=== PATIENT | male | born 1970 | race Caucasian/White ===

== ENCOUNTER 2019-02-07 01:55 | Inpatient (IN) | payer BC ==
[2019-02-07] MEDS ORDERED: Morphine 4 MG/ML VIAL ONE (02:18)
[2019-02-07] MEDS ORDERED: Ondansetron PF 4 MG/2 ML Vial ONE (02:19)
[2019-02-07 02:20] LABS: #Basophils 0.1 thou/uL (0.0-0.2); #Eosinphils 0.1 thou/uL (0.0-0.7); #Lymphocytes 2.5 thou/uL (1.20-3.40); #Monocytes 0.6 thou/uL (0.11-0.59); #Neutrophils 4.2 thou/uL (1.40-6.50); %Basophils 0.9 % (0.0-1.0); %Eosinophils 1.5 % (0.0-10.0); %Lymphocytes 33.6 % (21.0-51.0); Mean Corpuscular Hemoglobin 29.7 pg (27.0-31.0); Mean Corpuscular Volume 82.6 fL (78.0-98.0); Mean Platelet Volume 9.1 fL (7.4-10.4); Platelet Count 142 thou/uL (130-400); Red Blood Cell (RBC) Count 5.71 mill/uL (4.70-6.10); White Blood Cell (WBC) Count 7.4 thou/uL (4.8-10.8)
[2019-02-07 02:46] LABS: ALT (SGPT) 30 U/L (8-55); AST (SGOT) 18 U/L (5-34); Albumin 4.3 g/dL (3.5-5.0); Alkaline Phosphatase 90 U/L (40-150); Anion Gap 17 mmol/L (10-20); BUN (Urea Nitrogen) 19 mg/dL (8.9-20.6); Bilirubin, Total 0.3 mg/dL (0.2-1.2); Calc. Creatinine Clearance 0 mL/min (70-130); Calcium 9.5 mg/dL (7.8-10.44); Carbon Dioxide 16 mmol/L (22-29); Chloride 105 mmol/L (98-107); Estimated GFR-MDRD 65; Globulin 3.2 g/dL (2.4-3.5); Glucose 278 mg/dL (70-105); Lipase 42 U/L (8-78); Potassium 4.2 mmol/L (3.5-5.1); Protein, Total 7.5 g/dL (6.0-8.3); Sodium 134 mmol/L (136-145)
[2019-02-07] MEDS ORDERED: Ketorolac Tromethamine 30 MG/ML VIAL ONE (03:51)
[2019-02-07] MEDS ORDERED: HumaLOG 300 UNITS/3 ML VIAL SC PRN ×2 (04:05)
[2019-02-07] MEDS ORDERED: Dextrose 50% Abboject 50 ML SYRINGE SLOW IVP PRN ×2 (04:05→20:11)
[2019-02-07] MEDS ORDERED: Dextrose 5% in Water 1,000 ML IV PRN ×2 (04:05→20:11)
[2019-02-07] MEDS ORDERED: Ondansetron ODT 4 MG TAB PO PRN (04:16)
[2019-02-07] MEDS ORDERED: Ondansetron PF 4 MG/2 ML Vial IVP PRN ×2 (04:16→19:59)
[2019-02-07 04:18] LABS: Bilirubin Negative (Negative); Blood, Urine Negative (Negative); Clarity Clear (Clear); Glucose, Urine (Dipstick) Greater than 1000 mg/dL (Negative); Leukocyte Negative Leu/uL (Negative); Nitrite Negative (Negative); Protein, Urine (Dipstick) Negative (Neg-Trace); Urobilinogen Normal mg/dL (Less than 2)
[2019-02-07] MEDS: Sodium Chloride 0.9% 1,000 ML IV SCH ×2 (04:58→23:48)
[2019-02-07] MEDS ORDERED: Morphine 2 MG/ML SYRINGE SLOW IVP PRN (05:27)
[2019-02-07 05:51] LABS: Cardiac Risk 7.8 (Less than 4.5); Cholesterol 225 mg/dl (< 200 Desired); HDL Cholesterol 29 mg/dL (>60 Neg Risk); Triglycerides 696 mg/dL (Less than 150)
[2019-02-07 05:59] LABS: Amphetamine Not Detected (NotDetected); Barbiturates Screen Not Detected (NotDetected); Benzodiazepine Screen Not Detected (NotDetected); Cocaine Metabolite Screen Not Detected (NotDetected); Medtox Control Line Valid? VALID (VALID); Medtox Reader # READER 4; Methadone Not Detected (NotDetected); Methamphetamine Not Detected (NotDetected); Opiate Screen Detected (NotDetected); Oxycodone Screen Not Detected (NotDetected); Phencyclidine (PCP) Not Detected (NotDetected); THC/Cannabinoid Screen Not Detected (NotDetected); Tricyclic Screen Not Detected (NotDetected)
[2019-02-07 06:00] LABS: Troponin I 0.056 ng/mL (< 0.028)
--- NOTE | 2019-02-07 07:36 | HP ---
PRIMARY CARE PHYSICIAN: None. CHIEF COMPLAINT: Chest pain. HISTORY OF PRESENT ILLNESS: Mr. Sellers is a 48-year-old gentleman with a history of hypertension, diabetes, and high cholesterol, who presents after experiencing chest pain around midnight. The patient states he got out of bed, went to the bathroom and after lying back in bed, began to experience significant pain which he rates 8/10. He states it was in the center of his chest, described as a pressure which radiated up into the upper chest from right to left. He reports noting some mild discomfort radiating down his left arm and discomfort into the right shoulder. He states he became diaphoretic and vomited once. Denies any hematemesis. The patient states the pain was 8/10 in severity and he took his mother's nitroglycerin, which did not help to ease his pain. He denies having any associated shortness of breath. He called an ambulance because he is afraid given the fact that he has never experienced any pain like this before. En route to the hospital, EMS gave another dose of nitroglycerin which the patient states that helped to ease his discomfort to 3/10 in severity. The pain has remained constant at 3/10 since arriving to the emergency department. He has been given Toradol, as well as morphine and Zofran. An EKG was done in the emergency department, which showed normal sinus rhythm with a heart rate of 63. This was at 2:00 a.m. At 3:00 a.m., repeat EKG showed sinus bradycardia with a heart rate of 56. No ST changes or T-wave abnormalities. He has undergone a chest x-ray, which according to the emergency department physician did not demonstrate any acute changes. Final report is still pending. Given the fact that the patient has multiple comorbidities and initial family history of heart disease, he has been referred for continued observation and further investigations. REVIEW OF SYSTEMS: The patient states he recalls feeling slightly nauseated and with persisting heartburn all of yesterday. Denies having any vomiting yesterday. Also denies having any chest pain or shortness of breath history. Reports feeling fairly well in recent days without any fevers, chills, or sweats. No cough or hemoptysis. No abdominal pain or cramping. No changes with his bowels. He has been afebrile. All other review of systems negative. ALLERGIES: NO KNOWN DRUG ALLERGIES. CURRENT MEDICATIONS: 1. Fenofibrate. 2. Sildenafil. 3. Farxiga. 4. Lisinopril. PAST MEDICAL HISTORY: 1. Hypertension. 2. Diabetes mellitus. 3. Obesity. PAST SURGICAL HISTORY: Nasal surgery. SOCIAL HISTORY: The patient denies any alcohol consumption or illicit drug use. He does smoke tobacco, recently cut down to half a pack a day. PHYSICAL EXAMINATION: GENERAL: The patient appears well developed, well nourished, is in no acute distress. VITAL SIGNS: Temperature 98.3, pulse 59, blood pressure 118/80, respirations 16 , O2 saturation 97% on room air. HEENT: Normocephalic and atraumatic. Pupils are equal, round, and reactive to light. Sclerae without icterus. Oropharynx is clear. NECK: Supple. LUNGS: Clear to auscultation bilaterally without any wheezes, rales, or rhonchi. CARDIAC: Regular rate and rhythm. No chest wall tenderness. No murmurs, rubs , or gallops. ABDOMEN: Soft, nontender, and nondistended. Normoactive bowel sounds present. EXTREMITIES: No lower leg swelling or edema. NEUROLOGIC: Alert and oriented x3. SKIN: Without rash or jaundice. LABORATORY DATA: Full blood count unremarkable. LFTs normal including normal lipase. Sodium 134. GFR 65, creatinine 1.1, BUN 19. Initial troponin negative. IMAGING DATA: Chest x-ray done, final report pending. IMPRESSION AND PLAN: Mr. Sellers is a 48-year-old gentleman, who has been referred for management of the following. 1. Chest pain. The patient with comorbidities and a strong family history of coronary artery disease. He has been referred for acute coronary syndrome rule out. We will continue to trend troponins. He has just been given Toradol in the ER. We will give GI cocktail as well. He will need continuous cardiac monitoring. We will schedule a cardiac stress test. If EF reduced on stress test, he may benefit from undergoing an echocardiogram as well. I have added BNP to his labs, as well as magnesium and TSH. If EF on stress test is unremarkable, perhaps an outpatient echocardiogram would then be indicated. Day team to decide. 2. Hypertension. Resume home medications once verified. Monitor blood pressure. 3. Diabetes. Initiate insulin sliding scale. Monitor glucose and resume home medications once verified. 4. Gastrointestinal prophylaxis. Famotidine. 5. Deep venous thrombosis prophylaxis. Mechanical SCDs. The patient is ambulatory. 6. Code status full. His surrogate decision maker is his , Sariah Sellers. The patient's case was discussed with Dr. Rhodes, who agrees with plan of care as described above. Job ID: [id number] MTDD
--- NOTE | 2019-02-07 08:08 | RAD ---
AP CHEST: HISTORY: Chest pain. FINDINGS: Lungs are clear. Heart and mediastinum appear normal. Vasculature normal. IMPRESSION: No acute finding. POS: [facility]
--- NOTE | 2019-02-07 08:14 | CT ---
PRELIMINARY REPORT/[facility]/EMERGENCY AFTER HOURS PROCEDURE: PROCEDURE INFORMATION: Exam: CT Angiography Chest With Contrast Exam date and time: 02/07/2019 4:31 AM Clinical history: 48 years old, male; Patient HX: 48 yo male with a pmh of HTN, dm2, and tobacco abus e who presents to the ED with a cc of chest pain. He reports the chest pain started at 0045 that star amelia when he was walking to the bathroom. He denies any pain like this before. He states that the pain is pressure at the center of his chest with radiation across his chest and into his arm TECHNIQUE: Imaging protocol: Computed tomographic angiography of the chest with intravenous contrast. COMPARISON: No relevant prior studies available. FINDINGS: Pulmonary arteries: Limited evaluation due to poor contrast opacification of the pulmonary arteries, however no obvious central pulmonary embolism. Aorta: No acute findings. No aortic aneurysm or dissection. Lungs: No consolidation. No masses. Pleural space: No pneumothorax. Bilateral small pleural effusions. Heart: No cardiomegaly. Coronary calcifications. No significant pericardial effusion. Lymph nodes: No significant adenopathy. Bones/joints: No acute fracture. Soft tissues: No acute findings. IMPRESSION: No aortic aneurysm or dissection. Coronary calcifications. Bilateral small pleural effusions. PROCEDURE INFORMATION: Exam: CT Angiography Abdomen With Contrast Exam date and time: 02/07/2019 4:31 AM Clinical history: 48 years old, male; Patient HX: 48 yo male with a pmh of HTN, dm2, and tobacco abus e who presents to the ED with a cc of chest pain. He reports the chest pain started at 0045 that star amelia when he was walking to the bathroom. He denies any pain like this before. He states that the pain is pressure at the center of his chest with radiation across his chest and into his arm TECHNIQUE: Imaging protocol: Computed tomographic angiography images of the abdomen with intravenous contrast ma terial. COMPARISON: No relevant prior studies available. FINDINGS: VASCULATURE: Aorta: No acute findings. No aortic aneurysm. No aortic dissection. Celiac trunk and mesenteric arteries: No acute findings. No occlusion or significant stenosis. Renal arteries: No acute findings. No occlusion or significant stenosis. ABDOMEN: Liver: No acute findings. Fatty liver. Gallbladder and bile ducts: No calcified stones. No ductal dilation. Pancreas: No acute findings. No ductal dilation. Spleen: No acute findings. No splenomegaly. Adrenals: No acute findings. No mass. Kidneys and ureters: No acute findings. No hydronephrosis. Stomach and bowel: No acute findings. No obstruction. Normal appendix. Intraperitoneal space: No acute findings. No free air. No significant fluid collection. Bones/joints: No acute fracture. No dislocation. Soft tissues: No acute findings. Lymph nodes: No enlarged lymph nodes. IMPRESSION: No acute findings. Thank you for allowing us to participate in the care of your patient. Dictated and Authenticated by: Jose Maldonado MD 02/07/2019 5:18 AM Central Time ([place] & [place]) FINAL REPORT CTA CHEST AND ABDOMEN WITH CONTRAST: Date: 02/07/19 Thoracic and abdominal aorta shows no evidence of aneurysm or dissection. No significant atherosclero tic disease. Lung travis are clear of infiltrate. Liver, spleen, pancreas, and kidneys are unremarkable. Bowel loo ps unremarkable. I am in agreement with the preliminary report issued by [facility]. POS: [facility]
[2019-02-07] MEDS ORDERED: Famotidine/PF 20 mg/2ml Vial SLOW IVP SCH (09:00)
[2019-02-07 09:03] LABS: Troponin I 0.346 ng/mL (< 0.028)
[2019-02-07] MEDS ORDERED: Iopamidol 370 76% 100 ML VIAL ONE (09:51)
[2019-02-07] MEDS ORDERED: ISOVUE-370 76%-LOCM 1 ML ONE (11:57)
[2019-02-07] MEDS ORDERED: Lidocaine 1% (PF) 30 ML VIAL ONE (11:59)
[2019-02-07] MEDS ORDERED: Communication Order-Pharmacy FS SCH (12:15)
[2019-02-07] MEDS ORDERED: Verapamil 5 MG/2 ML VIAL ONE (12:24)
[2019-02-07] MEDS ORDERED: Heparin 10,000 UNITS/1 ML VIAL ONE ×2 (12:24→16:08)
[2019-02-07] MEDS ORDERED: Nitroglycerin 100MG/250ML BOT 250 ML ONE (12:24)
[2019-02-07] MEDS ORDERED: Midazolam HCl 2 mg/2 ml Vial ONE ×2 (12:50→14:32)
--- NOTE | 2019-02-07 13:12 | CON ---
DATE OF CONSULTATION: 02/07/2019 INDICATION FOR CONSULTATION: A 48-year-old gentleman with chest pain and multiple risk factors of coronary artery disease. HISTORY OF PRESENT ILLNESS: This very pleasant 48-year-old gentleman, who has a history of diabetes, hypertension, dyslipidemia with high triglycerides and high cholesterolemia. Also, he has a history of tobacco abuse. He has been smoking for at least 25 to 30 years. He also has family history of coronary artery disease. He works in the [employer]. Last night, he got up to go to the bathroom and noted the chest discomfort. His gave him one of her nitroglycerins, which was old, did not have any relief. 911 was called. He did have a nitroglycerin in the ambulance and this did improve his chest pain. The pain came back. He was given more nitroglycerin and the pain had decreased again. He said this never completely resolved. His EKG did not show any acute changes, but he did have some peaked T-waves in the anterior leads, which could be indicative of ischemia. Otherwise , cardiac enzymes also were slightly abnormal. I have continued to increase slightly. His last troponin I was 0.3. He still continues to have some discomfort, and I will advise him to undergo a cardiac catheterization. PAST MEDICAL HISTORY: Significant for the above noted risk factors such as hypercholesterolemia, diabetes, and hypertension. He also has some obesity. He has had nasal surgery. SOCIAL HISTORY: He is . He has children, who are alive and well. He works in the [employer]. He has no significant alcohol use, but he does continue to smoke. He says he is down to like a half a pack a day, but previously smoked more. REVIEW OF SYSTEMS: His 12-point review of systems is unremarkable, except as noted in the history of present illness. MEDICATIONS: Included, 1. Fenofibrate 145 mg a day. 2. Sildenafil. 3. Lisinopril 40 mg a day. He also was taking a medication as Fluarix Quad, I am unsure if that is an injection. In the emergency room, he was given morphine, Zofran, as well as ketorolac. He had been given nitroglycerin in the ambulance. ALLERGIES: NONE. FAMILY HISTORY: Positive for coronary artery disease. PHYSICAL EXAMINATION: GENERAL: Reveals a well-developed, well-nourished gentleman, who is in no acute distress, but still complaining of chest discomfort. VITAL SIGNS: His vital signs appear to be stable. His blood pressure is 146/87 , heart rate is in the 60s and shows a sinus rhythm, respiratory rate is 14. He is afebrile. HEENT: Shows the head to be normocephalic and atraumatic. Oral mucosa is pink and moist. NECK: Carotid pulses are present. There are no bruits. There is no JVD. The thyroid is not enlarged. CHEST: Clear to auscultation. There are no rales, rhonchi, or wheezing. CARDIOVASCULAR: Reveals a regular rate and rhythm. There is a normal S1, S2. I do not hear an S3 nor an S4. There are no significant murmurs, heaves, thrills, bruits, or rubs. ABDOMEN: Soft, nontender. Positive bowel sounds are present. No organomegaly or masses are palpable. EXTREMITIES: Showed no clubbing, cyanosis, or edema. He does have some excoriation areas from previous mosquito bites. Pulses are positive. No abnormalities are noted. NEUROLOGIC: He appears to be fully intact. He appears to have normal strength and tone. SKIN: Warm and dry. LABORATORY DATA: Shows a WBC of 7.4, hemoglobin of 17, and platelet count of 142,000. His troponin I is continued to rise. His last one was 1.56, earlier this morning at 8 o'clock was 0.34, and when he arrived in the emergency room, it was less than 0.01. His BNP was 29. His triglycerides were 696. His LDL level is too numerous to count due to the high triglyceridemia. His HDL level was low at 29. Sodium was 134, potassium of 4.2. His BUN was 19, creatinine of 1.2, and blood sugar was 278. Since being in the hospital, he has been placed on Pepcid, he has been on p.r.n. morphine. I do not see that he has been given any anticoagulation yet such as Lovenox or heparin. Otherwise, he is on p.r.n. medications. We will cancel the stress test, and we will proceed with cardiac catheterization. I have explained to him the procedure, the risks to include bleeding, infection, possibility of myocardial infarction, CVA, renal insufficiency, allergic contrast reaction, and the possibility of . IMPRESSION: 1. [id number] elevation myocardial infarction in a patient with multiple risk factors for coronary artery disease. He will undergo cardiac catheterization. 2. Diabetes. This is actually under poor control at this time. The blood sugar is elevated. This will need to be addressed by the primary care service. 3. Dyslipidemia with significantly elevated triglyceride levels. We will need to increase his medications or try different medications in order to lower the triglycerides. We were unable to even interpret what the LDL level is. 4. Hypertension. This is under reasonable control, but could be better controlled also at this time. 5. Tobacco abuse. He was encouraged to absolutely stop smoking. Further recommendations on the patient will depend on the results of the cardiac catheterization, which will be planned for within the next hour. Job ID: [id number] MTDD
[2019-02-07] MEDS ORDERED: Esmolol 100 MG/10 ML VIAL ONE (13:27)
[2019-02-07] MEDS ORDERED: Aminocaproic Acid 5 GM/20 ML VIAL ONE (13:27)
[2019-02-07] MEDS ORDERED: Norepinephrine 4 MG/4 ML VIAL ONE (13:27)
[2019-02-07] MEDS ORDERED: Sodium Bicarb 50 MEQ/50 ML VIAL ONE (13:27)
[2019-02-07] MEDS ORDERED: Nitroglycerin 50 MG/250 ML BOT ONE (13:27)
[2019-02-07] MEDS ORDERED: Vecuronium 10 MG VIAL ONE ×2 (13:27→13:52)
[2019-02-07] MEDS ORDERED: Papaverine 60 MG/2 ML VIAL ONE (13:27)
[2019-02-07] MEDS ORDERED: Heparin 30,000 units/30 ml VIAL ONE (13:27)
[2019-02-07] MEDS ORDERED: Protamine Sulfate 250 MG/25 ML VIAL ONE (13:27)
[2019-02-07] MEDS ORDERED: Cardioplegic Soln 1,000 ML BAG ONE (13:27)
[2019-02-07] MEDS ORDERED: Thrombin 5000 UNITS/5 ML VIAL ONE (13:27)
[2019-02-07] MEDS ORDERED: Heparin 5,000 UNITS/ML VIAL ONE (13:27)
[2019-02-07] MEDS ORDERED: PROPOFOL 200 MG/20 ML VIAL ONE (13:27)
[2019-02-07] MEDS ORDERED: Rocuronium Bromide 10 MG/ML (10ML VIAL) ONE (13:27)
[2019-02-07] MEDS ORDERED: Calcium Chloride 1 GM/10 ML Abboject SYRINGE ONE (13:27)
[2019-02-07] MEDS ORDERED: Potassium Chloride 60 MEQ/30 ML VIAL ONE (13:27)
[2019-02-07] MEDS ORDERED: PHENYLEPHRINE-NS 100 MCG/ML 10 ML SYRINGE ONE (13:27)
[2019-02-07] MEDS ORDERED: Mannitol 12.5 GM/50 ML ONE (13:27)
[2019-02-07] MEDS ORDERED: Magnesium 5 GM/10 ML VIAL ONE (13:27)
[2019-02-07] MEDS ORDERED: Lidocaine 2% PF 100 mg/5 ml Syringe ONE (13:27)
[2019-02-07] MEDS ORDERED: Albumin 5% 500 ML ONE (13:50)
[2019-02-07] MEDS ORDERED: Midazolam HCl 5 mg/5 ml Vial ONE ×2 (13:51→17:59)
[2019-02-07] MEDS ORDERED: Fentanyl 250 MCG/5 ML VIAL ONE ×2 (13:51→16:53)
[2019-02-07] MEDS ORDERED: Dexmedetomidine 200 MCG/2 ML VIAL ONE (13:52)
[2019-02-07] MEDS ORDERED: Heparin 10,000 UNITS/1 ML VIAL 30,000 UNITS in Sodium Chloride 0.9% 1,000 ML FS SCH (14:15)
[2019-02-07] MEDS ORDERED: CEFAZOLIN 2 GM in Premix Bag 1 BAG IVPB SCH (14:30)
[2019-02-07] MEDS ORDERED: Nitroglycerin 0.4 MG TAB (25 Tab Bottle) SL PRN (14:57)
[2019-02-07] MEDS ORDERED: Sodium Chloride 0.9% 200 ML IV PRN (14:57)
[2019-02-07] MEDS ORDERED: Acetaminophen/Codeine 30-300mg Tablet PO PRN ×2 (14:57)
--- NOTE | 2019-02-07 15:39 | CON ---
DATE OF CONSULTATION: 02/07/2019 REQUESTING PHYSICIAN: Dr. Lucero. CHIEF COMPLAINT: Chest pain. HISTORY OF PRESENT ILLNESS: The patient is a 48-year-old diabetic man with positive family history of premature coronary artery disease, who began having severe chest pain and pressure in his upper chest. Late last night, he had one episode of vomiting and became diaphoretic, but did not have any shortness of breath. He had no relief of his pain when he took one of his mother's nitroglycerin tablets and then called an ambulance. A second dose of nitroglycerin en route to the hospital helped with this pain, but his pain has persisted. It has waxed and waned in intensity and is certainly under much better control now, but his initial troponins though normal, soon sophie and as of about noon time, were still rising, albeit still modestly elevated. PAST MEDICAL HISTORY: Significant for insulin-dependent diabetes and hypertension. HOME MEDICATIONS: 1. Lantus insulin 10 units a day. 2. Farxiga 10 mg a day. 3. Metformin 1000 mg b.i.d. 4. Lisinopril 40 mg a day. 5. Fenofibrate 145 mg a day and p.r.n. 6. Sildenafil 100 mg a day. 7. He has received Toradol, morphine, and Zofran in the emergency room. He has received no platelet inhibitors. ALLERGIES: HE DENIES ANY MEDICAL ALLERGIES. SOCIAL HISTORY: He smokes. FAMILY HISTORY: Positive for his father having had bypass surgery in his 40s and his maternal grandfather and uncles having had coronary artery disease. REVIEW OF SYSTEMS: Negative for any eye, speech, facial, or extremity symptoms consistent with TIAs. It is negative for any claudication or any shortness of breath, any orthopnea. PHYSICAL EXAMINATION: GENERAL: He is a stocky man, in no distress. VITAL SIGNS: He is 5 feet 11 inches, weighs 250-1/4 pounds. HR 66 BP 146/87 T 98.1 HEENT: No xanthelasma. NECK: No JVD. No carotid bruits. CHEST: Clear to auscultation. HEART: He has regular rate and rhythm. ABDOMEN: Soft and nontender. EXTREMITIES: He has palpable radial pulses with normal Jeremy's testing bilaterally. He has palpable dorsalis pedis pulses bilaterally. There is no clubbing, cyanosis, or edema. No obvious varicosities. NEUROLOGIC: Grossly nonfocal. DIAGNOSTIC DATA: His chest x-ray perhaps shows slightly prominent pulmonary vascular markings, otherwise is normal. LABORATORY DATA: His white count 7.4, hemoglobin 17.0, hematocrit 47.2, platelets 142,000. Sodium was 134, otherwise his electrolytes were normal. BUN 19, creatinine 1.21 with an estimated GFR of 65. Glucose was 278, calcium 9.5. LFTs were normal. Albumin 4.3. His initial troponin was undetectable, but his followup troponin at about 5:30 this morning was 0.056, at 8:30 was 0.346, and at 11:30 hours, 1.560. His BNP was 29.3, triglycerides were 696 and total cholesterol 225, HDL was 29, LDL cannot be calculated causing interference. TSH was 2.0140. His cardiac catheterization shows right-dominant system with about a 70% or 80% distal left main lesion. The LAD abruptly occludes at the first major septal tour conductor and a relatively small diagonal. There is some collateral filling of some septal perforators and probably diagonal and then in the right-sided injections, hang up of some dye, I think probably represents the apical segment of the LAD can be seen. There are two obtuse marginals to the circumflex system. There is no obstruction to flow to the first OM beyond the left main lesion. There is significant lesion in the circumflex proper __that leads to a rather small posterolateral OM. The right coronary proper has diffuse disease with what appears to be grossly intact posterior descending and posterolateral branches with perhaps some minimal obstruction in the ostium of one of the large posterolateral branches. LVEF is around 40% with anterior hypokinesis and an LVEDP of 20. IMPRESSION AND RECOMMENDATIONS: Left main disease with waxing and waning, but ongoing pattern of post infarction angina. We will plan on urgent coronary revascularization. Job ID: [id number] [facility]ITAL[facility]
[2019-02-07] MEDS ORDERED: Insulin Regular 300 UNITS/3 ML VIAL ONE (16:39)
[2019-02-07] MEDS ORDERED: CEFAZOLIN 1 GM VIAL ONE (17:02)
[2019-02-07] MEDS ORDERED: Fentanyl 100 MCG/2 ML VIAL ONE (19:48)
[2019-02-07] MEDS: Fentanyl 100 MCG/2 ML VIAL SLOW IVP PRN ×3 (19:50→23:51)
[2019-02-07] MEDS ORDERED: Promethazine HCl 25 MG/ML VIAL IM PRN (19:59)
[2019-02-07] MEDS ORDERED: Guaifenesin DM 100-10/5 ML UDCUP PO PRN (19:59)
[2019-02-07] MEDS ORDERED: Norepinephrine 8 MG/0.9% NS 250 ML IVPB PRN (19:59)
[2019-02-07] MEDS ORDERED: Fentanyl 100 MCG/2 ML VIAL SLOW IVP PRN (19:59)
[2019-02-07] MEDS ORDERED: hydrALAZINE 20 MG/ML VIAL SLOW IVP PRN (19:59)
[2019-02-07] MEDS ORDERED: niCARdipine 25 MG in Sodium Chloride 0.9% 250 ML 250 ML IVPB PRN (19:59)
[2019-02-07] MEDS ORDERED: HYDROcodone/Acetaminophen 5/325 mg Tablet PO PRN (19:59)
[2019-02-07] MEDS ORDERED: Mag-Al 1200 mg/1200 mg/30 ML UDCUP PO PRN (19:59)
[2019-02-07] MEDS ORDERED: Acetaminophen 325 MG TAB PO PRN (19:59)
[2019-02-07] MEDS ORDERED: Hetastarch 6% 500 ML 500 ML IVPB PRN (19:59)
[2019-02-07] MEDS ORDERED: Post-Op Insulin Drip Protocol IVPB ONE (19:59)
[2019-02-07] MEDS ORDERED: Sodium Chloride 0.9% 1,000 ML IV SCH (19:59)
[2019-02-07] MEDS ORDERED: Bisacodyl 5 MG TAB PO PRN (19:59)
[2019-02-07] MEDS ORDERED: Nitroglycerin 50 MG/250 ML BOT 250 ML IVPB PRN (19:59)
[2019-02-07] MEDS ORDERED: Bisacodyl 10 MG SUPP PR PRN (19:59)
[2019-02-07 20:10] LABS: Actual Bicarbonate (HCO3a) 16.4 mEq/L (22-28); CO2 Tension 27.9 mmHg (35.0-45.0); Calcium, Ionized 1.13 mmol/L (1.12-1.30); Carboxyhemoglobin (COHb) 1.4 gm% (0.0-3.0); Hemoglobin (Hb) 14.7 g/dL (14.0-18.0); O2 Tension (PaO2) 96.7 mmHg (80.0-100.0); Potassium - ABG Lab 4.23 mmol/L (3.70-5.30); Puncture Site ALINE; pH, Arterial 7.39 (7.35-7.45)
[2019-02-07 20:11] LABS: ALV-art Gradient 296.225 (0-20)
[2019-02-07 20:11] LABS: #Eosinphils 0.1 thou/uL (0.0-0.7); #Lymphocytes 2.1 thou/uL (1.20-3.40); #Monocytes 1.4 thou/uL (0.11-0.59); #Neutrophils 13.6 thou/uL (1.40-6.50); %Basophils 0.1 % (0.0-1.0); %Eosinophils 0.5 % (0.0-10.0); %Lymphocytes 11.9 % (21.0-51.0); %Monocytes 8.2 % (0.0-10.0); %Neutrophils 79.2 % (42.0-75.0); Hemoglobin 14.4 g/dL (14.0-18.0); Mean Corpuscular HGB CONC 35.1 g/dL (32.0-36.0); Mean Corpuscular Hemoglobin 29.8 pg (27.0-31.0); Mean Corpuscular Volume 85.1 fL (78.0-98.0); Mean Platelet Volume 9.3 fL (7.4-10.4); Platelet Count 118 thou/uL (130-400); RBC Distribution Width 13.1 % (11.5-14.5); Red Blood Cell (RBC) Count 4.84 mill/uL (4.70-6.10); White Blood Cell (WBC) Count 17.2 thou/uL (4.8-10.8)
[2019-02-07] MEDS ORDERED: Insulin Regular 300 UNITS/3 ML VIAL SC PRN (20:11)
[2019-02-07] MEDS ORDERED: HUMULIN R 100 UNITS in Sodium Chloride 0.9% 100 ML IVPB SCH (20:11)
--- NOTE | 2019-02-07 20:11 | RAD ---
Frontal radiograph chest: 02/07/2019 COMPARISON: 02/07/2019 History: Evaluate chest following open heart surgery FINDINGS: There is an endotracheal tube terminating at the level of the clavicular heads. Right vascular catheter terminates at the level of the proximal right atrium. New midline sternotomy wires are present. Left-sided chest tube and mediastinal drainage tubes noted. No lobar consolidation. Hazy increased density in the left base suggesting left basilar volume loss or small v olume pleural fluid. IMPRESSION: Postoperative changes as detailed above.
[2019-02-07] MEDS ORDERED: Sodium Bicarb 50 MEQ/50 ML VIAL IVP SCH (20:15)
[2019-02-07] MEDS ORDERED: Aspirin 300 MG Suppository PR SCH (20:15)
[2019-02-07] MEDS ORDERED: DOBUTamine 500 mg/250 ml 500 MG in Premix Bag 1 BAG IVPB SCH (20:15)
[2019-02-07 20:16] LABS: INR-International Normal Ratio 1.4; PTT 25.1 SEC (22.9-36.1); Prothrombin Time 16.9 SEC (12.0-14.7)
[2019-02-07] MEDS: Morphine 2 MG/ML SYRINGE SLOW IVP PRN ×2 (20:31→20:53)
[2019-02-07 20:35] LABS: Anion Gap 8 mmol/L (10-20); BUN (Urea Nitrogen) 15 mg/dL (8.9-20.6); Calc. Creatinine Clearance 140 mL/min (70-130); Calcium 7.4 mg/dL (7.8-10.44); Carbon Dioxide 23 mmol/L (22-29); Chloride 112 mmol/L (98-107); Estimated GFR-MDRD 75; Glucose 130 mg/dL (70-105); Sodium 139 mmol/L (136-145)
[2019-02-07 21:00] LABS: Actual Bicarbonate (HCO3a) 23.8 mEq/L (22-28); Base Excess (BEa) -1.7 mEq/L (-2.0 to +3.0); CO2 Tension 43.1 mmHg (35.0-45.0); Calcium, Ionized 1.07 mmol/L (1.12-1.30); Carboxyhemoglobin (COHb) 1.3 gm% (0.0-3.0); Hemoglobin (Hb) 15.6 g/dL (14.0-18.0); O2 Tension (PaO2) 76.2 mmHg (80.0-100.0); Potassium - ABG Lab 4.32 mmol/L (3.70-5.30); pH, Arterial 7.36 (7.35-7.45)
[2019-02-07 21:07] LABS: ALV-art Gradient 155.125 (0-20); Puncture Site ALINE
[2019-02-07] MEDS: HYDROcodone/Acetaminophen 5/325 mg Tablet PO PRN (22:14)
[2019-02-07] MEDS: Famotidine/PF 20 mg/2ml Vial SLOW IVP SCH (22:15)
[2019-02-07] MEDS: Atorvastatin Calcium 40 MG TAB PO SCH (22:15)
[2019-02-07] MEDS: Docusate 100 MG CAP PO SCH (22:18)
[2019-02-07 22:52] VITALS: BMI 36.1
[2019-02-08 01:26] LABS: Hemoglobin 14.9 g/dL (14.0-18.0)
[2019-02-08 01:39] LABS: Potassium 3.7 mmol/L (3.5-5.1)
[2019-02-08] MEDS: HYDROcodone/Acetaminophen 5/325 mg Tablet PO PRN ×4 (02:00→16:13)
[2019-02-08] MEDS: Fentanyl 100 MCG/2 ML VIAL SLOW IVP PRN (02:01)
[2019-02-08] MEDS: Potassium Chloride 20 MEQ/100 ML PREMIX BAG IVPB PRN ×2 (02:02→06:09)
--- NOTE | 2019-02-08 02:03 | OP ---
DATE OF PROCEDURE: 02/07/2019 PROCEDURES PERFORMED: Emergent coronary artery bypass grafting x3 with left internal mammary artery to the distal LAD, left radial artery from aorta to the first obtuse marginal, and reverse greater saphenous vein graft from the aorta to the PDA. PREOPERATIVE DIAGNOSIS: Left main coronary artery disease with ongoing angina, status post myocardial infarction. POSTOPERATIVE DIAGNOSIS: Left main coronary artery disease with ongoing angina, status post myocardial infarction. ASSISTANTS: 1. Jesus Alberto Chatman MD. 2. Micah Oneill MD. ANESTHESIA: General endotracheal anesthesia. INDICATIONS: The patient is a 48-year-old diabetic smoker with a strongly positive family history of premature coronary disease. Last night, he had severe chest pain and ruled in for myocardial infarction. While his initial chest pain greatly improved, it followed a waxing and waning course and has never completely resolved. Urgent cardiac catheterization demonstrated high-grade distal left main lesion with extremely poor visualization of an occluded LAD, as well as significant right coronary disease. He had mildly decreased LV function with anterior hypokinesis. He is now taken to the operating room in urgent fashion for revascularization. FINDINGS: Pump time 80 minutes. Cross-clamp time 40 minutes. Good quality ANIVAL , radial artery, and saphenous vein. The LAD was about 2 to 2.5 mm vessel. The first obtuse marginal was about 2 mm. The second obtuse marginal were accessible on the epicardial surface, was about 1 mm and was not grafted. The PDA was about 2 to 2.5 mm vessel. The anterior apical portion of the left ventricle was poorly contractile even post revascularization. The pericardium was closed. NARRATIVE REPORT: After informed consent was obtained, the patient was taken to the operating room, placed in supine position on the operating table. After the induction of general anesthesia, a vascular exam of the patient's nondominant left hand was repeated with pulse ox monitor on his left index finger. Both the radial and ulnar artery were compressed, resulting in loss of the pulse ox waveform, that waveform returned with release of the ulnar artery although the radial artery remained compressed. Ultrasonographically, his left greater saphenous vein was then mapped and marked. His right upper chest was prepped and draped in sterile fashion and he was placed in Trendelenburg. A triple-lumen central line kit was used to place right subclavian central line by the Seldinger technique. All 3 ports easily aspirated and flushed, and the line was secured with suture. The patient's torso, groins, left upper extremity and bilateral lower extremities were prepped and draped in sterile fashion. An purchasing assistant harvested radial artery as a pedicle with attached _vena communicantes from the left forearm, controlling side branches with use of hemoclips and electrocautery. That wound was closed in layers of subcutaneous and subcuticular Vicryl and saphenous vein was harvested from the mid to distal left thigh using a skin bridge technique. It was prepared for use as a graft and the harvest sites were closed in a similar fashion. Meanwhile, a median sternotomy was performed and the left internal mammary artery was harvested as a skeletonized in-situ graft from the level of lateral xiphoid to the level of the subclavian vein through an extrapleural exposure. The patient was heparinized. The mammary was ligated and divided distally. It was instilled intraluminally with papaverine solution and the mammary bed was inspected for hemostasis. Retractor was replaced with a Stoddard retractor. The medial reflections of the pleura were mobilized. The pericardium was opened and marsupialized. The aorta was palpated and was soft. A double concentric pursestring of 2-0 Ethibond was placed in the ascending aorta within the pericardial reflection and a single pursestring was placed in the right atrial appendage. Aortic and venous cannulae were inserted and secured by their pursestrings. The plane between the aorta and the pulmonary artery was developed. Cardiopulmonary bypass was instituted and the patient was systemically cooled. The heart was examined and the vessels to be bypassed were identified. A longitudinal slit was made in the pericardium anterior to the left phrenic nerve through which the mammary could be passed. The left pleura was entered as it was being mobilized off the pericardium. An aortic cross-clamp was applied and cardioplegia was administered through an aortic root needle. When arrest have been achieved, attention was turned to the distal right coronary system. The proximal PDA was exposed and opened, where it was a large good quality vessel. Saphenous vein was reversed and anastomosed there end-to-side with running 6-0 Prolene suture and the anastomosis was tested by flushing cold cardioplegia down the graft. The first obtuse marginal was then opened. The radial artery was spatulated and anastomosed to the OM with running 7-0 Prolene suture and tested by flushing it with cold cardioplegia. The LAD was then opened distally and the mammary was anastomosed to it with running 7-0 Prolene and tacked to the epicardium. The aortic cross- clamp was replaced with a partial occluding clamp and aortotomy was made in the ascending aorta with a scalpel and punch, incorporating the root needle site. The PDA graft was brought along the right side of the heart and anastomosed to that aortotomy end-to-side with running 6-0 Prolene suture. An 11 blade scalpel was used to create a venotomy in the lou[place] of that proximal anastomosis. The radial artery graft was then spatulated and anastomosed there end-to-side with running 7-0 Prolene. It was allowed to back bleed and the suture line secured. The partial occluding clamp was removed and the vein graft was de-aired. The bulldogs were removed from the radial and vein grafts. The anastomoses were inspected for hemostasis. Posterior pericardial and left pleural drain were brought out through separate incisions and secured with suture. Right atrial and right ventricular temporary epicardial pacing wires were placed. The patient was then easily from cardiopulmonary bypass. The aortic and venous cannulae were removed and the pursestring secured. Protamine was administered. When hemostasis was adequate, an anterior mediastinal drain was placed and the pericardium was closed over with running Vicryl. The cut surfaces of the sternum were treated with platelet-rich GPS and vancomycin paste. The sternum was reapproximated with a combination of simple and [id number] #7 stainless steel wires. The soft tissues were irrigated and treated with platelet-poor GPS. The fascia was closed over the wires with running #1 Vicryl. Subcutaneous tissue was reapproximated with running 2-0 Vicryl and the skin was closed with a running 3-0 Vicryl subcuticular suture. The wounds were dressed and the patient was taken to the intensive care unit in stable condition. Job ID: [id number] [facility]
[2019-02-08 05:23] LABS: #Monocytes 1.4 thou/uL (0.11-0.59); #Neutrophils 11.2 thou/uL (1.40-6.50); %Basophils 0.1 % (0.0-1.0); %Eosinophils 0.2 % (0.0-10.0); %Lymphocytes 7.3 % (21.0-51.0); %Neutrophils 82.3 % (42.0-75.0); Hemoglobin 14.7 g/dL (14.0-18.0); Mean Corpuscular HGB CONC 34.9 g/dL (32.0-36.0); Mean Corpuscular Hemoglobin 29.6 pg (27.0-31.0); Mean Corpuscular Volume 84.7 fL (78.0-98.0); Mean Platelet Volume 8.9 fL (7.4-10.4); Platelet Count 133 thou/uL (130-400); RBC Distribution Width 13.5 % (11.5-14.5); Red Blood Cell (RBC) Count 4.96 mill/uL (4.70-6.10); White Blood Cell (WBC) Count 13.7 thou/uL (4.8-10.8)
[2019-02-08 05:43] LABS: Anion Gap 13 mmol/L (10-20); BUN (Urea Nitrogen) 16 mg/dL (8.9-20.6); Calc. Creatinine Clearance 124 mL/min (70-130); Calcium 8.2 mg/dL (7.8-10.44); Carbon Dioxide 22 mmol/L (22-29); Chloride 105 mmol/L (98-107); Estimated GFR-MDRD 63; Glucose 166 mg/dL (70-105); Potassium 3.7 mmol/L (3.5-5.1); Sodium 136 mmol/L (136-145)
[2019-02-08] MEDS: Docusate 100 MG CAP PO SCH ×2 (07:23→20:24)
[2019-02-08] MEDS: Aspirin 325 MG TAB PO SCH (07:23)
[2019-02-08] MEDS: Famotidine/PF 20 mg/2ml Vial SLOW IVP SCH (07:24)
--- NOTE | 2019-02-08 07:41 | RAD ---
EXAM: Portable chest PROVIDED CLINICAL HISTORY: Post open heart COMPARISON: 02/07/2019 FINDINGS: Interval extubation. Additional significant interval change with respect to the prior examination is not apparent. IMPRESSION: As above.
[2019-02-08] MEDS ORDERED: Dextrose 50% Abboject 50 ML SYRINGE SLOW IVP PRN (09:31)
[2019-02-08] MEDS ORDERED: Dextrose 5% in Water 1,000 ML IV PRN (09:31)
[2019-02-08] MEDS: HumaLOG 300 UNITS/3 ML VIAL SC PRN ×3 (11:08→20:25)
--- NOTE | 2019-02-08 11:21 | PDOC.HOSPP ---
- Subjective Encounter Date: 02/08/19 Encounter Time: 09:00 Subjective: Patient seen and examined. No new complaints. No overnight events pt had CABG done, he is extubated, he has chest tube in place - Objective Vital Signs & Weight: Vital Signs (12 hours) Temp Pulse Ox 02/08/19 07:55 96 02/08/19 07:00 98.8 F 02/08/19 04:00 98.6 F 97 02/08/19 00:00 99.1 F Weight Admit Weight 257 lb 15.053 oz Weight 257 lb 15.053 oz Most Recent Monitor Data Heart Rate from ECG 100 NIBP 94/70 NIBP BP-Mean 78 Respiration from ECG 19 SpO2 97 I&O: 02/07/19 02/08/19 02/09/19 06:59 06:59 06:59 Intake Total 68.5 935.3 0 Output Total 400 1750 460 Balance -331.5 -814.7 -460 Result Diagrams: 02/08/19 05:15 02/08/19 05:15 Additional Labs: Accuchecks 02/08/19 02/08/19 02/08/19 11:07 09:44 08:23 POC Glucose 227 H 235 H 198 H 02/08/19 02/08/19 02/08/19 07:33 06:10 05:17 POC Glucose 127 H 140 H 177 H 02/08/19 02/08/19 02/08/19 04:14 02:16 00:57 POC Glucose 220 H 192 H 225 H 02/08/19 02/07/19 02/07/19 00:00 19:48 19:19 POC Glucose 199 H 130 H 140 H 02/07/19 02/07/19 02/07/19 18:32 17:42 17:01 POC Glucose 147 H 171 H 183 H 02/07/19 02/07/19 16:19 15:21 POC Glucose 166 H 114 H Radiology Reviewed by me: Yes (chest xray reviewed) EKG Reviewed by me: Yes (nsr) Hospitalist ROS - Review of Systems Constitutional: denies: fever, chills, sweats, weakness, malaise, other ENT: denies: ear pain, ear discharge, nose pain, nose discharge, nose congestion , mouth pain, mouth swelling, throat pain, throat swelling, other Respiratory: denies: cough, dry, shortness of breath, hemoptysis, SOB with excertion, pleuritic pain, sputum, wheezing, other Cardiovascular: denies: chest pain, palpitations, orthopnea, paroxysmal noc. dyspnea, edema, light headedness, other Gastrointestinal: denies: nausea, vomiting, abdominal pain, diarrhea, constipation, melena, hematochezia, other Genitourinary: denies: dysuria, frequency, incontinence, hematuria, retention, other Musculoskeletal: denies: neck pain, shoulder pain, arm pain, back pain, hand pain, leg pain, foot pain, other Skin: denies: rash, lesions, amira, bruising, other - Medication Medications: Active Medications Generic Name Dose Route Start Last Admin Trade Name Freq PRN Reason Stop Dose Admin Hydrocodone Bitart/Acetaminophen 2 tab 02/07/19 19:59 02/08/19 07:24 [place] 5/325 PO 2 tab Q4H PRN Administration Severe Pain (7-10) Aspirin 325 mg 02/08/19 09:00 02/08/19 07:23 Aspirin PO 325 mg DAILY MERVIN Administration Atorvastatin Calcium 40 mg 02/07/19 21:00 02/07/19 22:15 Lipitor PO 40 mg HS MERVIN Administration Docusate Sodium 100 mg 02/07/19 21:00 02/08/19 07:23 Colace PO 100 mg BID MERVIN Administration Fentanyl 50 mcg 02/07/19 19:59 02/08/19 02:01 Sublimaze SLOW IVP 02/09/19 19:18 50 mcg Q2H PRN Administration Severe Pain (7-10) Hydralazine HCl 10 mg 02/07/19 19:59 02/07/19 20:53 Apresoline SLOW IVP 10 mg Q6H PRN Administration To Maintain SBP< 140mmHG Insulin Human Regular 100 101 mls @ 0 mls/hr 02/07/19 20:11 02/08/19 00:06 units/ Sodium Chloride IVPB 101 mls INF MERVIN Administration Protocol As Directed Dobutamine HCl/Dextrose 500 mg 250 mls @ 0 mls/hr 02/07/19 20:15 02/07/19 20: 38 / Device IVPB 250 mls INF MERVIN Administration Protocol As Directed Insulin Human Lispro 0 units 02/08/19 09:31 02/08/19 11:08 Humalog SC 4 unit .MODERATE SLIDING SC PRN Administration Moderate Correctional Scale Insulin Human Regular 0 units 02/07/19 20:11 02/07/19 20:25 Humulin R SC 2 unit Q4H PRN Administration POST OP SLIDING SCALE Protocol Morphine Sulfate 2 mg 02/07/19 19:59 02/07/19 20:53 Morphine SLOW IVP 2 mg Q15MIN PRN Administration Severe Pain (7-10) Ondansetron HCl 4 mg 02/07/19 19:59 02/07/19 22:15 Zofran IVP 4 mg Q6H PRN Administration Nausea/Vomiting Potassium Chloride 20 meq 02/07/19 19:59 02/08/19 06:09 Kcl IVPB 20 meq PRN PRN Administration K level </= 4.0 Sodium Chloride 10 ml 02/07/19 21:00 02/08/19 09:44 Flush - Normal Saline IVF Not Given Q12HR MERVIN - Exam General Appearance: NAD, awake alert Eye: PERRL, anicteric sclera ENT: normocephalic atraumatic, no oropharyngeal lesions Neck: supple, symmetric, no JVD, no thyromegaly Heart: RRR, no murmur, no gallops, no rubs Respiratory: CTAB, no wheezes, no rales, no ronchi Respiratory - other findings: chest tube in place Gastrointestinal: soft, non-tender, non-distended, normal bowel sounds, no palpable masses Extremities: no cyanosis, no clubbing, no edema Skin: normal turgor, no lesions, no rashes Neurological: cranial nerve grossly intact, normal sensation to touch Musculoskeletal: normal tone, normal strength, no muscle wasting Psychiatric: normal affect, normal behavior, A&O x 3 Hosp A/P (1) NSTEMI (non-ST elevated myocardial infarction) Code(s): I21.4 - NON-ST ELEVATION (NSTEMI) MYOCARDIAL INFARCTION Status: Acute (2) CAD (coronary artery disease) Code(s): I25.10 - ATHSCL HEART DISEASE OF [place] CORONARY ARTERY W/O ANG PCTRS Status: Acute (3) S/P CABG x 3 Code(s): Z95.1 - PRESENCE OF AORTOCORONARY BYPASS GRAFT Status: Acute (4) Obesity (BMI 30-39.9) Code(s): E66.9 - OBESITY, UNSPECIFIED Status: Chronic (5) Hypertension Code(s): I10 - ESSENTIAL (PRIMARY) HYPERTENSION Status: Chronic (6) Diabetes type 2, controlled Code(s): E11.9 - TYPE 2 DIABETES MELLITUS WITHOUT COMPLICATIONS Status: Chronic (7) Hypertriglyceridemia Code(s): E78.1 - PURE HYPERGLYCERIDEMIA Status: Chronic (8) GERD (gastroesophageal reflux disease) Code(s): K21.9 - GASTRO-ESOPHAGEAL REFLUX DISEASE WITHOUT ESOPHAGITIS Status: Chronic Qualifiers: Esophagitis presence: esophagitis presence not specified Qualified Code(s) : K21.9 - Gastro-esophageal reflux disease without esophagitis - Plan old records reviewed/req 02/08/19- continue post CABG protocol treatment as per cardiology and CV surgery , will monitor
--- NOTE | 2019-02-08 13:38 | EKG ---
Test Reason : Blood Pressure : / mmHG Vent. Rate : 056 BPM Atrial Rate : 056 BPM P-R Int : 182 ms QRS Dur : 108 ms QT Int : 450 ms P-R-T Axes : 059 028 023 degrees QTc Int : 434 ms Sinus bradycardia Otherwise normal ECG Confirmed by ESDRAS GAO ([id number]), online content editor OSWALDO DENIS ([id number]) on 02/08/2019 1:38:16 PM Referred By: Confirmed By:ESDRAS GAO
--- NOTE | 2019-02-08 13:38 | EKG ---
Test Reason : Blood Pressure : / mmHG Vent. Rate : 063 BPM Atrial Rate : 063 BPM P-R Int : 194 ms QRS Dur : 104 ms QT Int : 426 ms P-R-T Axes : 059 038 015 degrees QTc Int : 435 ms Normal sinus rhythm Normal ECG Confirmed by ESDRAS GAO ([id number]), mapping editor OWSALDO DENIS ([id number]) on 02/08/2019 1:38:15 PM Referred By: Confirmed By:ESDRAS GAO
[2019-02-08] MEDS: metFORMIN 500 MG TAB PO SCH (16:13)
[2019-02-08] MEDS ORDERED: Carvedilol 3.125 MG TAB PO SCH (17:00)
[2019-02-08] MEDS: Famotidine 20 MG TAB PO SCH (20:24)
[2019-02-08] MEDS: Atorvastatin Calcium 40 MG TAB PO SCH (20:24)
[2019-02-08] MEDS ORDERED: Lisinopril 2.5 MG TAB PO SCH (21:00)
[2019-02-09 05:34] LABS: Anion Gap 13 mmol/L (10-20); BUN (Urea Nitrogen) 11 mg/dL (8.9-20.6); Calc. Creatinine Clearance 151 mL/min (70-130); Carbon Dioxide 22 mmol/L (22-29); Chloride 100 mmol/L (98-107); Estimated GFR-MDRD 80; Glucose 162 mg/dL (70-105); Potassium 4.5 mmol/L (3.5-5.1); Sodium 130 mmol/L (136-145)
[2019-02-09] MEDS: HumaLOG 300 UNITS/3 ML VIAL SC PRN ×3 (05:43→17:59)
[2019-02-09] MEDS: Docusate 100 MG CAP PO SCH (07:42)
[2019-02-09] MEDS: Polyethylene Glycol 3350 17 GM Packet PO SCH (07:42)
[2019-02-09] MEDS: metFORMIN 500 MG TAB PO SCH ×2 (07:42→20:40)
[2019-02-09] MEDS: Aspirin 325 MG TAB PO SCH (07:43)
[2019-02-09] MEDS: Carvedilol 3.125 MG TAB PO SCH ×2 (07:43→16:42)
[2019-02-09] MEDS: Famotidine 20 MG TAB PO SCH ×2 (07:43→20:40)
--- NOTE | 2019-02-09 07:49 | RAD ---
EXAM: Portable chest PROVIDED CLINICAL HISTORY: Post open heart COMPARISON: 02/08/2019 FINDINGS: Significant interval change with respect to the prior examination is not apparent. IMPRESSION: As above.
[2019-02-09] MEDS ORDERED: Bisacodyl 10 MG SUPP PR PRN (09:19)
[2019-02-09] MEDS ORDERED: Guaifenesin DM 100-10/5 ML UDCUP PO PRN (09:19)
[2019-02-09] MEDS ORDERED: Ondansetron PF 4 MG/2 ML Vial IVP PRN (09:19)
[2019-02-09] MEDS ORDERED: Mag-Al 1200 mg/1200 mg/30 ML UDCUP PO PRN (09:19)
[2019-02-09] MEDS ORDERED: Acetaminophen 325 MG TAB PO PRN (09:19)
[2019-02-09] MEDS ORDERED: Nitroglycerin 0.4 MG TAB (25 Tab Bottle) SL PRN (09:19)
[2019-02-09] MEDS ORDERED: Bisacodyl 5 MG TAB PO PRN (09:19)
[2019-02-09] MEDS ORDERED: HYDROcodone/Acetaminophen 5/325 mg Tablet PO PRN (09:19)
[2019-02-09] MEDS ORDERED: Mineral Oil ENEMA PR PRN (09:19)
[2019-02-09] MEDS ORDERED: Insulin Regular 300 UNITS/3 ML VIAL SC PRN (09:49)
[2019-02-09] MEDS ORDERED: Dextrose 50% Abboject 50 ML SYRINGE SLOW IVP PRN (09:49)
[2019-02-09] MEDS ORDERED: Dextrose 5% in Water 1,000 ML IV PRN ×2 (09:49→12:50)
--- NOTE | 2019-02-09 09:57 | PDOC.HOSPP ---
- Subjective Encounter Date: 02/09/19 Encounter Time: 08:00 Subjective: Patient seen and examined. No new complaints. No overnight events - Objective Vital Signs & Weight: Vital Signs (12 hours) Temp Pulse Ox 02/09/19 07:51 97 02/09/19 03:00 98.4 F 02/08/19 23:00 98.6 F Weight Admit Weight 257 lb 15.053 oz Weight 256 lb 6.362 oz Most Recent Monitor Data Heart Rate from ECG 96 NIBP 124/84 NIBP BP-Mean 97 Respiration from ECG 39 SpO2 98 I&O: 02/08/19 02/09/19 02/10/19 06:59 06:59 06:59 Intake Total 935.3 2434 480 Output Total 1750 3075 240 Balance -814.7 -641 240 Result Diagrams: 02/08/19 05:15 02/09/19 04:32 Additional Labs: Accuchecks 02/08/19 02/08/19 02/08/19 20:25 16:12 11:07 POC Glucose 173 H 215 H 227 H Radiology Reviewed by me: Yes EKG Reviewed by me: Yes Hospitalist ROS - Review of Systems Eyes: denies: pain, vision change, conjunctivae inflammation, eyelid inflammation, redness, other ENT: denies: ear pain, ear discharge, nose pain, nose discharge, nose congestion , mouth pain, mouth swelling, throat pain, throat swelling, other Respiratory: denies: cough, dry, shortness of breath, hemoptysis, SOB with excertion, pleuritic pain, sputum, wheezing, other Cardiovascular: denies: chest pain, palpitations, orthopnea, paroxysmal noc. dyspnea, edema, light headedness, other Gastrointestinal: denies: nausea, vomiting, abdominal pain, diarrhea, constipation, melena, hematochezia, other Genitourinary: denies: dysuria, frequency, incontinence, hematuria, retention, other Musculoskeletal: denies: neck pain, shoulder pain, arm pain, back pain, hand pain, leg pain, foot pain, other - Medication Medications: Active Medications Generic Name Dose Route Start Last Admin Trade Name Freq PRN Reason Stop Dose Admin Atorvastatin Calcium 40 mg 02/07/19 21:00 02/08/19 20:24 Lipitor PO 40 mg HS MERVIN Administration Carvedilol 3.125 mg 02/09/19 08:00 02/09/19 07:43 Coreg PO 3.125 mg BID-WM MERVIN Administration Polyethylene Glycol 17 gm 02/09/19 09:00 02/09/19 07:42 Miralax PO 17 gm DAILY MERVIN Administration - Exam General Appearance: NAD, awake alert Eye: PERRL, anicteric sclera ENT: normocephalic atraumatic, no oropharyngeal lesions Neck: supple, symmetric, no JVD, no thyromegaly Heart: RRR, no murmur, no gallops, no rubs Respiratory: CTAB, no wheezes, no rales, no ronchi Respiratory - other findings: chest tube in place Gastrointestinal: soft, non-tender, non-distended, normal bowel sounds Extremities: no cyanosis, no clubbing, no edema Skin: normal turgor, no lesions, no rashes Neurological: cranial nerve grossly intact, normal sensation to touch, no weakness, no focal deficits Musculoskeletal: normal tone, normal strength, no muscle wasting Psychiatric: normal affect, normal behavior, A&O x 3 Hosp A/P (1) NSTEMI (non-ST elevated myocardial infarction) Code(s): I21.4 - NON-ST ELEVATION (NSTEMI) MYOCARDIAL INFARCTION Status: Acute (2) CAD (coronary artery disease) Code(s): I25.10 - ATHSCL HEART DISEASE OF [place] CORONARY ARTERY W/O ANG PCTRS Status: Acute (3) S/P CABG x 3 Code(s): Z95.1 - PRESENCE OF AORTOCORONARY BYPASS GRAFT Status: Acute (4) Obesity (BMI 30-39.9) Code(s): E66.9 - OBESITY, UNSPECIFIED Status: Chronic (5) Hypertension Code(s): I10 - ESSENTIAL (PRIMARY) HYPERTENSION Status: Chronic (6) Diabetes type 2, controlled Code(s): E11.9 - TYPE 2 DIABETES MELLITUS WITHOUT COMPLICATIONS Status: Chronic (7) Hypertriglyceridemia Code(s): E78.1 - PURE HYPERGLYCERIDEMIA Status: Chronic (8) GERD (gastroesophageal reflux disease) Code(s): K21.9 - GASTRO-ESOPHAGEAL REFLUX DISEASE WITHOUT ESOPHAGITIS Status: Chronic Qualifiers: Esophagitis presence: esophagitis presence not specified Qualified Code(s) : K21.9 - Gastro-esophageal reflux disease without esophagitis - Plan old records reviewed/req, plan discussed w/ family 02/08/19- continue post CABG protocol treatment as per cardiology and CV surgery , will monitor 02/09- transferred to tele, chest tube as per CV surgery, medication reviewed as above, symptomatic treatment, cardiac rehab
--- NOTE | 2019-02-09 12:11 | PDOC.CPN ---
- Subjective Date: 02/09/19 Time: 12:15 Interval history: The pt seen and examined. No overnight events. No cardiac complaints. - Objective Allergies/Adverse Reactions: Allergies Allergy/AdvReac Type Severity Reaction Status Date / Time No Known Drug Allergies Allergy Verified 02/07/19 04:49 Visit Medications: Current Medications Acetaminophen (Tylenol) 650 mg PO Q6H PRN PRN Reason: Headache/Fever or Pain Hydrocodone Bitart/Acetaminophen ([place] 5/325) 1 tab PO Q4H PRN PRN Reason: Moderate Pain (4-6) Hydrocodone Bitart/Acetaminophen ([place] 5/325) 2 tab PO Q4H PRN PRN Reason: Severe Pain (7-10) Al Hydroxide/Mg Hydroxide (Maalox) 30 ml PO Q4H PRN PRN Reason: Indigestion Aspirin (Ecotrin) 325 mg PO DAILY [facility] Atorvastatin Calcium (Lipitor) 40 mg PO HS [facility] Last Admin: 02/08/19 20:24 Dose: 40 mg Bisacodyl (Dulcolax) 10 mg PO Q12H PRN PRN Reason: Constipation Bisacodyl (Dulcolax) 10 mg [place] Q12H PRN PRN Reason: Constipation Carvedilol (Coreg) 3.125 mg PO BID-[facility] Last Admin: 02/09/19 07:43 Dose: 3.125 mg Dextrose/Water (Dextrose 50%) 25 gm SLOW IVP PRN PRN PRN Reason: PER HYPOGLYCEMIC PROTOCOL Famotidine (Pepcid) 20 mg PO BID [facility]1983 Furosemide (Lasix) 40 mg PO DAILY [facility] Glucagon (Glucagon) 1 mg SC PRN PRN PRN Reason: PER HYPOGLYCEMIC PROTOCOL Guaifenesin/Dextromethorphan (Robitussin Dm) 15 ml PO Q4H PRN PRN Reason: Cough Dextrose/Water (D5w) 1,000 mls @ 0 mls/hr IV INF PRN PRN Reason: PRN HYPOGLYCEMIC PROTOCOL Insulin Human Regular (Humulin R) 0 units SC Q4H PRN; Protocol PRN Reason: POST OP SLIDING SCALE Lisinopril (Zestril) 5 mg PO HS [facility] Metformin HCl (Glucophage) 1,000 mg PO BID [facility] Mineral Oil (Fleet Mineral Oil) 133 ml [place] DAILYPRN PRN PRN Reason: Constipation Nitroglycerin (Nitrostat) 0.4 mg SL Q5MIN PRN PRN Reason: Chest Pain Non-Formulary Medication (Dapagliflozin Propanediol [Farxiga]) 10 mg PO DAILY [facility] Ondansetron HCl (Zofran) 4 mg IVP Q6H PRN PRN Reason: Nausea/Vomiting Polyethylene Glycol (Miralax) 17 gm PO DAILY [facility] Last Admin: 02/09/19 07:42 Dose: 17 gm Potassium Chloride (Klor-Con 10) 10 meq PO QAM-[facility] Vital Signs & Weight: Vital Signs Temp Pulse Resp BP Pulse Ox 02/09/19 11:45 98.8 F 99 20 137/85 93 L 02/09/19 09:20 98.7 F 102 H 18 147/86 H 98 02/09/19 07:51 97 02/09/19 03:00 98.4 F Admit Weight 257 lb 15.053 oz Weight 256 lb 6.362 oz - Physical Exam General: alert & oriented x3 Cardiac: regular rate and rhythm, S1/S2 Lungs: clear to auscultation Abdomen: decreased bowel sounds Skin: clear Musculoskeletal: normal range of motion - Labs Result Diagrams: 02/08/19 05:15 02/09/19 04:32 Troponin/CKMB Troponin I 1.560 ng/mL (< 0.028) H* 02/07/19 11:23 - Telemetry Sinus rhythms and dysrhythmias: sinus rhythm - Assessment/Plan Assessment/Plan: 1. CAD with S/P CABG x 3 on 02/07/2019 with DEL ANGEL-LAD, radial-OM1, and RGSV-PDA - stable; on Coreg, ASA, Lipitor 2. HTN - stable 3. HLD - on statin 4. DM type 2 - managed by PCP 5. Obese - weight management education given to the pt and family MAR reviewed Pt. seen and eval. by me. I agree with the A/P by walt COMMUNITY ENGAGEMENT REPRESENTATIVE. He is doing well s/p CABG. Chest clear. RRR. gjm
--- NOTE | 2019-02-09 12:16 | CON ---
DATE OF CONSULTATION: Bhavik Sellers is a 48-year-old gentleman status post CABG in the ICU. REASON FOR CONSULT: He is from the [facility] complains of some heaviness and pressure sensation in the chest. He was found to have coronary artery disease. Non ST-segment elevation myocardial infarction, underwent a cardiac cath and now post CABG. His is at the bedside, who states he has been smoking for most of his life. 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 PAST MEDICAL HISTORY: Diabetes, hypertension, lipidemia. PAST SURGICAL HISTORY: None recently. 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 FAMILY HISTORY: Unremarkable. REVIEW OF SYSTEMS: Otherwise unremarkable. CURRENT MEDICATIONS: His home medications included 1. Metformin 1000 b.i.d. 2. Lisinopril 40. 3. Insulin 10 units. 4. TriCor 145. 5. . ALLERGIES: NONE. PHYSICAL EXAMINATION: GENERAL: Awake, alert, and responsive. VITAL SIGNS: Pulse is 119, saturations are 98% on room air, respiratory rate is 27, blood pressure is 127/77. CHEST: No wheezing or crackles. CARDIAC: Normal S1 and S2. No gallops. ABDOMEN: No mass. LABORATORY DATA: Creatinine is 1.26. White count 30,000. IMAGING STUDIES: Chest x-ray is normal. IMPRESSION: Status post emergent coronary artery bypass graft, left main; tobacco abuse, diabetes, obesity, probably sleep apnea. PLAN: Continue present treatment. I have asked him to consider a formal sleep study after his discharge, in the meantime refrain from smoking. We will follow. Consultation note, 70 minutes, 50% direct patient. Job ID: [id number]
--- NOTE | 2019-02-09 12:46 | PRG ---
DATE OF SERVICE: 02/09/2019 SUBJECTIVE: This morning, he is better. No pain. No shortness of breath. OBJECTIVE: VITAL SIGNS: Temperature 98, pulse 99, saturations are 98% on room air, blood pressure 137/85. CHEST: No wheezing or crackles. CARDIAC: Normal S1 and S2. No gallop. ABDOMEN: No masses. LABORATORY DATA: Lytes are normal. Sodium is 130. ASSESSMENT: Status post coronary artery bypass graft, mild hyponatremia, probably sleep apnea. Pulmonary kwong, stable. I have asked him to follow up in the office regarding his sleep apnea. Pulmonary follow at a distance. Call if needed. Job ID: [id number]
[2019-02-09] MEDS ORDERED: HumaLOG 300 UNITS/3 ML VIAL SC PRN (12:50)
[2019-02-09] MEDS: Lisinopril 2.5 MG TAB PO SCH (20:39)
[2019-02-09] MEDS: Atorvastatin Calcium 40 MG TAB PO SCH (20:40)
[2019-02-09] MEDS: HYDROcodone/Acetaminophen 5/325 mg Tablet PO PRN (20:41)
[2019-02-10] MEDS: HYDROcodone/Acetaminophen 5/325 mg Tablet PO PRN (06:08)
[2019-02-10] MEDS ORDERED: Non-Formulary Item 1 EACH (Dapagliflozin Propanediol [Farxiga] 10 MG) PO SCH (09:00)
[2019-02-10] MEDS: metFORMIN 500 MG TAB PO SCH ×2 (09:31→22:16)
[2019-02-10] MEDS: Polyethylene Glycol 3350 17 GM Packet PO SCH (09:31)
[2019-02-10] MEDS: Furosemide 40 MG TAB PO SCH (09:32)
[2019-02-10] MEDS: Famotidine 20 MG TAB PO SCH ×2 (09:32→22:16)
[2019-02-10] MEDS: Aspirin 325 mg Enteric Coated Tablet PO SCH (09:32)
[2019-02-10] MEDS: Carvedilol 3.125 MG TAB PO SCH ×2 (09:32→17:55)
[2019-02-10] MEDS: Potassium Chloride 10 MEQ TAB PO SCH (09:32)
[2019-02-10] MEDS: HumaLOG 300 UNITS/3 ML VIAL SC PRN ×2 (12:51→17:56)
--- NOTE | 2019-02-10 16:16 | PDOC.HOSPP ---
- Subjective Encounter Date: 02/10/19 Encounter Time: 11:00 Subjective: Mr. Sellers was seen today in follow-up of NSTEMI, post CABG. He notes some soreness in his arms, and he felt a little dizzy after he was up walking with PT. Otherwise no complaints. - Objective Vital Signs & Weight: Vital Signs (12 hours) Temp Pulse Pulse Pulse Resp BP BP 02/10/19 15:51 98.1 F 90 16 02/10/19 14:05 108 H 102 H 133/83 124/85 02/10/19 12:45 98.2 F 99 18 02/10/19 09:06 98 86 138/93 H 123/70 02/10/19 07:46 98.1 F 86 18 BP BP Pulse Ox Pulse Ox Pulse Ox 02/10/19 15:51 118/79 95 02/10/19 14:05 97 96 02/10/19 12:45 109/74 95 02/10/19 09:06 98 95 02/10/19 07:46 126/79 96 Weight Admit Weight 257 lb 15.053 oz Weight 248 lb 3.2 oz Most Recent Monitor Data Heart Rate from ECG 96 NIBP 124/84 NIBP BP-Mean 97 Respiration from ECG 39 SpO2 98 I&O: 02/09/19 02/10/19 02/11/19 06:59 06:59 06:59 Intake Total 2434 2790 Output Total 3075 3960 Balance -641 -7790 Result Diagrams: 02/08/19 05:15 02/09/19 04:32 Additional Labs: Accuchecks 02/10/19 02/10/19 02/09/19 10:57 05:03 20:05 POC Glucose 178 H 147 H 178 H 02/09/19 17:12 POC Glucose 165 H Hospitalist ROS - Medication Medications: Active Medications Generic Name Dose Route Start Last Admin Trade Name Freq PRN Reason Stop Dose Admin Acetaminophen 650 mg 02/09/19 09:19 02/09/19 16:41 Tylenol PO 650 mg Q6H PRN Administration Headache/Fever or Pain Hydrocodone Bitart/Acetaminophen 1 tab 02/09/19 09:19 02/10/19 14:33 [place] 5/325 PO 1 tab Q4H PRN Administration Moderate Pain (4-6) Hydrocodone Bitart/Acetaminophen 2 tab 02/09/19 09:19 02/10/19 06:08 [place] 5/325 PO 2 tab Q4H PRN Administration Severe Pain (7-10) Aspirin 325 mg 02/10/19 09:00 02/10/19 09:32 Ecotrin PO 325 mg DAILY MERVIN Administration Atorvastatin Calcium 40 mg 02/07/19 21:00 02/09/19 20:40 Lipitor PO 40 mg HS MERVIN Administration Carvedilol 3.125 mg 02/09/19 08:00 02/10/19 09:32 Coreg PO 3.125 mg BID-WM MERVIN Administration Famotidine 20 mg 02/09/19 21:00 02/10/19 09:32 Pepcid PO 20 mg BID MERVIN Administration Furosemide 40 mg 02/10/19 09:00 02/10/19 09:32 Lasix PO 40 mg DAILY MERVIN Administration Insulin Human Lispro 0 units 02/09/19 12:50 02/10/19 12:51 Humalog SC 3 unit .AGGRESSIVE SLIDING PRN Administration Aggressive Correctional Scale Lisinopril 5 mg 02/09/19 21:00 02/09/19 20:39 Zestril PO 5 mg HS MERVIN Administration Metformin HCl 1,000 mg 02/09/19 21:00 02/10/19 09:31 Glucophage PO 1,000 mg BID MERVIN Administration Polyethylene Glycol 17 gm 02/09/19 09:00 02/10/19 09:31 Miralax PO 17 gm DAILY MERVIN Administration Potassium Chloride 10 meq 02/10/19 08:00 02/10/19 09:32 Klor-Con 10 PO 10 meq QAM-WM MERVIN Administration - Exam Eye: PERRL, anicteric sclera Heart: RRR, no murmur, no gallops, no rubs, normal peripheral pulses Respiratory: CTAB, no wheezes, no rales, no ronchi, normal chest expansion Gastrointestinal: soft, non-tender, non-distended, normal bowel sounds, no palpable masses, no hepatomegaly, no splenomegaly, no bruit Extremities: no cyanosis, no clubbing, 1+ LE edema Neurological: no focal deficits Psychiatric: A&O x 3 Hosp A/P (1) NSTEMI (non-ST elevated myocardial infarction) Code(s): I21.4 - NON-ST ELEVATION (NSTEMI) MYOCARDIAL INFARCTION Status: Acute (2) S/P CABG x 3 Code(s): Z95.1 - PRESENCE OF AORTOCORONARY BYPASS GRAFT Status: Chronic (3) Diabetes type 2, controlled Code(s): E11.9 - TYPE 2 DIABETES MELLITUS WITHOUT COMPLICATIONS Status: Chronic (4) Hypertension Code(s): I10 - ESSENTIAL (PRIMARY) HYPERTENSION Status: Chronic - Plan * NSTEMI- he is s/p CABG- clinically stable * HTN- blood pressure is stable * DM- blood glucose is stable * Continue Cardiac Rehab
--- NOTE | 2019-02-10 16:51 | PDOC.CPN ---
- Subjective Date: 02/10/19 Time: 13:00 - Review of Systems General: denies: fever/chills, weight/appetite/sleep changes, night sweats, fatigue Respiratory: denies: cough, congestion, shortness of breath, exercise intolerance Cardiovascular: denies: chest pain, palpitation, edema, paroxysmal nocturnal dyspnea, orthopnea Gastrointestinal: denies: nausea, vomiting, diarrhea, constipation, abd pain, GI bleeding - Objective Allergies/Adverse Reactions: Allergies Allergy/AdvReac Type Severity Reaction Status Date / Time No Known Drug Allergies Allergy Verified 02/07/19 04:49 Visit Medications: Current Medications Acetaminophen (Tylenol) 650 mg PO Q6H PRN PRN Reason: Headache/Fever or Pain Last Admin: 02/09/19 16:41 Dose: 650 mg Hydrocodone Bitart/Acetaminophen ([place] 5/325) 1 tab PO Q4H PRN PRN Reason: Moderate Pain (4-6) Last Admin: 02/10/19 14:33 Dose: 1 tab Hydrocodone Bitart/Acetaminophen ([place] 5/325) 2 tab PO Q4H PRN PRN Reason: Severe Pain (7-10) Last Admin: 02/10/19 06:08 Dose: 2 tab Al Hydroxide/Mg Hydroxide (Maalox) 30 ml PO Q4H PRN PRN Reason: Indigestion Aspirin (Ecotrin) 325 mg PO DAILY [facility] Last Admin: 02/10/19 09:32 Dose: 325 mg Atorvastatin Calcium (Lipitor) 40 mg PO [facility] Last Admin: 02/09/19 20:40 Dose: 40 mg Bisacodyl (Dulcolax) 10 mg PO Q12H PRN PRN Reason: Constipation Bisacodyl (Dulcolax) 10 mg SD Q12H PRN PRN Reason: Constipation Carvedilol (Coreg) 3.125 mg PO BID-[facility] Last Admin: 02/10/19 09:32 Dose: 3.125 mg Dextrose/Water (Dextrose 50%) 25 gm SLOW IVP PRN PRN PRN Reason: PER HYPOGLYCEMIC PROTOCOL Famotidine (Pepcid) 20 mg PO BID [facility] Last Admin: 02/10/19 09:32 Dose: 20 mg Furosemide (Lasix) 40 mg PO DAILY [facility] Last Admin: 02/10/19 09:32 Dose: 40 mg Glucagon (Glucagon) 1 mg SC PRN PRN PRN Reason: PER HYPOGLYCEMIC PROTOCOL Guaifenesin/Dextromethorphan (Robitussin Dm) 15 ml PO Q4H PRN PRN Reason: Cough Dextrose/Water (D5w) 1,000 mls @ 0 mls/hr IV INF PRN PRN Reason: PRN HYPOGLYCEMIC PROTOCOL Insulin Human Lispro (Humalog) 0 units SC .AGGRESSIVE SLIDING PRN PRN Reason: Aggressive Correctional Scale Last Admin: 02/10/19 12:51 Dose: 3 unit Insulin Human Lispro (Humalog) 0 units SC .BEDTIME SLIDING SC PRN PRN Reason: Bedtime Correctional Scale Lisinopril (Zestril) 5 mg PO HS [facility] Last Admin: 02/09/19 20:39 Dose: 5 mg Metformin HCl (Glucophage) 1,000 mg PO BID [facility] Last Admin: 02/10/19 09:31 Dose: 1,000 mg Mineral Oil (Fleet Mineral Oil) 133 ml [place] DAILYPRN PRN PRN Reason: Constipation Nitroglycerin (Nitrostat) 0.4 mg SL Q5MIN PRN PRN Reason: Chest Pain Non-Formulary Medication (Dapagliflozin Propanediol [Farxiga]) 10 mg PO DAILY [facility] Ondansetron HCl (Zofran) 4 mg IVP Q6H PRN PRN Reason: Nausea/Vomiting Polyethylene Glycol (Miralax) 17 gm PO DAILY [facility] Last Admin: 02/10/19 09:31 Dose: 17 gm Potassium Chloride (Klor-Con 10) 10 meq PO QAM-WM [facility] Last Admin: 02/10/19 09:32 Dose: 10 meq Vital Signs & Weight: Vital Signs Temp Pulse Pulse Pulse Resp BP BP 02/10/19 15:51 98.1 F 90 16 02/10/19 14:05 108 H 102 H 133/83 124/85 02/10/19 12:45 98.2 F 99 18 02/10/19 09:06 98 86 138/93 H 123/70 02/10/19 07:46 98.1 F 86 18 BP BP Pulse Ox Pulse Ox Pulse Ox 02/10/19 15:51 118/79 95 02/10/19 14:05 97 96 02/10/19 12:45 109/74 95 02/10/19 09:06 98 95 02/10/19 07:46 126/79 96 Admit Weight 257 lb 15.053 oz Weight 248 lb 3.2 oz - Physical Exam General: alert & oriented x3 Neck: supple neck, no JVD/HJR Cardiac: regular rate and rhythm, no murmur Lungs: clear to auscultation Abdomen: unremarkable Skin: wound (dry.) Musculoskeletal: normal range of motion - Labs Result Diagrams: 02/08/19 05:15 02/09/19 04:32 Troponin/CKMB Troponin I 1.560 ng/mL (< 0.028) H* 02/07/19 11:23 - Assessment/Plan Assessment/Plan: 1. CAD with S/P CABG x 3 on 02/07/2019 with DEL ANGEL-LAD, radial-OM1, and RGSV-PDA - stable; on Coreg, ASA, Lipitor 2. HTN - stable 3. HLD - on statin 4. DM type 2 - managed by PCP 5. Obese - weight management education given to the pt and family MAR reviewed
[2019-02-10] MEDS: Lisinopril 2.5 MG TAB PO SCH (22:15)
[2019-02-10] MEDS: Atorvastatin Calcium 40 MG TAB PO SCH (22:16)
[2019-02-11] MEDS: Carvedilol 3.125 MG TAB PO SCH (08:52)
[2019-02-11] MEDS: Aspirin 325 mg Enteric Coated Tablet PO SCH (08:52)
[2019-02-11] MEDS: metFORMIN 500 MG TAB PO SCH (08:52)
[2019-02-11] MEDS: Furosemide 40 MG TAB PO SCH (08:52)
[2019-02-11] MEDS: Famotidine 20 MG TAB PO SCH (08:52)
[2019-02-11] MEDS: Potassium Chloride 10 MEQ TAB PO SCH (08:52)
[2019-02-11] MEDS: Polyethylene Glycol 3350 17 GM Packet PO SCH (08:53)
--- NOTE | 2019-02-11 09:49 | PDOC.HOSPP ---
- Subjective Encounter Date: 02/11/19 Encounter Time: 09:48 Subjective: Mr. Sellers was seen today in follow-up of CAD post CABG. He does not have any complaints. He had the chest tube removed today. - Objective Vital Signs & Weight: Vital Signs (12 hours) Temp Pulse Resp BP Pulse Ox 02/11/19 07:07 98.3 F 85 18 120/72 93 L 02/11/19 04:00 98.4 F 83 20 119/78 95 02/10/19 22:15 87 Weight Admit Weight 257 lb 15.053 oz Weight 247 lb 8 oz Most Recent Monitor Data Heart Rate from ECG 96 NIBP 124/84 NIBP BP-Mean 97 Respiration from ECG 39 SpO2 98 I&O: 02/10/19 02/11/19 02/12/19 06:59 06:59 06:59 Intake Total 2790 1480 Output Total 3960 2600 Balance -1170 -1120 Result Diagrams: 02/08/19 05:15 02/09/19 04:32 Additional Labs: Accuchecks 02/11/19 02/10/19 02/10/19 05:24 20:14 16:31 POC Glucose 140 H 221 H 154 H 02/10/19 10:57 POC Glucose 178 H Hospitalist ROS - Medication Medications: Active Medications Generic Name Dose Route Start Last Admin Trade Name Freq PRN Reason Stop Dose Admin Acetaminophen 650 mg 02/09/19 09:19 02/09/19 16:41 Tylenol PO 650 mg Q6H PRN Administration Headache/Fever or Pain Hydrocodone Bitart/Acetaminophen 1 tab 02/09/19 09:19 02/10/19 14:33 [place] 5/325 PO 1 tab Q4H PRN Administration Moderate Pain (4-6) Hydrocodone Bitart/Acetaminophen 2 tab 02/09/19 09:19 02/10/19 06:08 [place] 5/325 PO 2 tab Q4H PRN Administration Severe Pain (7-10) Aspirin 325 mg 02/10/19 09:00 02/11/19 08:52 Ecotrin PO 325 mg DAILY MERVIN Administration Atorvastatin Calcium 40 mg 02/07/19 21:00 02/10/19 22:16 Lipitor PO 40 mg HS MERVIN Administration Carvedilol 3.125 mg 02/09/19 08:00 02/11/19 08:52 Coreg PO 3.125 mg BID-WM MERVIN Administration Famotidine 20 mg 02/09/19 21:00 02/11/19 08:52 Pepcid PO 20 mg BID MERVIN Administration Furosemide 40 mg 02/10/19 09:00 02/11/19 08:52 Lasix PO 40 mg DAILY MERVIN Administration Insulin Human Lispro 0 units 02/09/19 12:50 02/10/19 17:56 Humalog SC 3 unit .AGGRESSIVE SLIDING PRN Administration Aggressive Correctional Scale Insulin Human Lispro 0 units 02/09/19 12:50 02/10/19 22:19 Humalog SC 2 unit .BEDTIME SLIDING SC PRN Administration Bedtime Correctional Scale Lisinopril 5 mg 02/09/19 21:00 02/10/19 22:15 Zestril PO 5 mg HS MERVIN Administration Metformin HCl 1,000 mg 02/09/19 21:00 02/11/19 08:52 Glucophage PO 1,000 mg BID MERVIN Administration Polyethylene Glycol 17 gm 02/09/19 09:00 02/11/19 08:53 Miralax PO Not Given DAILY MERVIN Potassium Chloride 10 meq 02/10/19 08:00 02/11/19 08:52 Klor-Con 10 PO 10 meq QAM-WM MERVIN Administration - Exam Eye: PERRL, anicteric sclera Heart: RRR, no gallops, no rubs, normal peripheral pulses, murmur present, II/ IV (LLSB- 2/6) Respiratory: CTAB, no wheezes, no rales, no ronchi, normal chest expansion Gastrointestinal: soft, non-tender, non-distended, normal bowel sounds, no palpable masses, no hepatomegaly, no splenomegaly Extremities: no cyanosis, no clubbing, no edema Hosp A/P (1) NSTEMI (non-ST elevated myocardial infarction) Code(s): I21.4 - NON-ST ELEVATION (NSTEMI) MYOCARDIAL INFARCTION Status: Acute (2) S/P CABG x 3 Code(s): Z95.1 - PRESENCE OF AORTOCORONARY BYPASS GRAFT Status: Chronic (3) Diabetes type 2, controlled Code(s): E11.9 - TYPE 2 DIABETES MELLITUS WITHOUT COMPLICATIONS Status: Chronic (4) Hypertension Code(s): I10 - ESSENTIAL (PRIMARY) HYPERTENSION Status: Chronic (5) Tobacco abuse Code(s): Z72.0 - TOBACCO USE Status: Acute - Plan * NSTEMI- he is s/p CABG- clinically stable * plan is for discharge later today. Will check a Chest X-ray prior to discharge * Patient has received information on diet and exercise * HTN- blood pressure is stable * DM- blood glucose is stable- will check a Hemoglobin A1c * Tobacco abuse- discussed briefly - patient does not have a real plan, but says he will quit. * Continue Cardiac Rehab
--- NOTE | 2019-02-11 10:29 | RAD ---
EXAM: Chest 2 views: HISTORY: Status post CABG COMPARISON: None. FINDINGS: There is a normal-sized cardiomediastinal silhouette. The patient is status post sternotomy. A right subclavian central venous catheter seen with its tip in the superior vena cava. There is atelectasis in the left lung base with a small adjacent pleural effusion. A small right pleural effus ion may also be present. The bones are unremarkable. IMPRESSION: Small bilateral pleural effusions.
--- NOTE | 2019-02-11 10:35 | PDOC.CPN ---
- Subjective Date: 02/11/19 Time: 10:35 Interval history: The pt seen and examined. No overnight events. No cardiac complaints. - Objective Allergies/Adverse Reactions: Allergies Allergy/AdvReac Type Severity Reaction Status Date / Time No Known Drug Allergies Allergy Verified 02/07/19 04:49 Visit Medications: Current Medications Acetaminophen (Tylenol) 650 mg PO Q6H PRN PRN Reason: Headache/Fever or Pain Last Admin: 02/09/19 16:41 Dose: 650 mg Hydrocodone Bitart/Acetaminophen ([place] 5/325) 1 tab PO Q4H PRN PRN Reason: Moderate Pain (4-6) Last Admin: 02/10/19 14:33 Dose: 1 tab Hydrocodone Bitart/Acetaminophen ([place] 5/325) 2 tab PO Q4H PRN PRN Reason: Severe Pain (7-10) Last Admin: 02/10/19 06:08 Dose: 2 tab Al Hydroxide/Mg Hydroxide (Maalox) 30 ml PO Q4H PRN PRN Reason: Indigestion Aspirin (Ecotrin) 325 mg PO DAILY [facility] Last Admin: 02/11/19 08:52 Dose: 325 mg Atorvastatin Calcium (Lipitor) 40 mg PO [facility] Last Admin: 02/10/19 22:16 Dose: 40 mg Bisacodyl (Dulcolax) 10 mg PO Q12H PRN PRN Reason: Constipation Bisacodyl (Dulcolax) 10 mg DE Q12H PRN PRN Reason: Constipation Carvedilol (Coreg) 3.125 mg PO BID-[facility] Last Admin: 02/11/19 08:52 Dose: 3.125 mg Dextrose/Water (Dextrose 50%) 25 gm SLOW IVP PRN PRN PRN Reason: PER HYPOGLYCEMIC PROTOCOL Famotidine (Pepcid) 20 mg PO BID [facility] Last Admin: 02/11/19 08:52 Dose: 20 mg Furosemide (Lasix) 40 mg PO DAILY [facility] Last Admin: 02/11/19 08:52 Dose: 40 mg Glucagon (Glucagon) 1 mg SC PRN PRN PRN Reason: PER HYPOGLYCEMIC PROTOCOL Guaifenesin/Dextromethorphan (Robitussin Dm) 15 ml PO Q4H PRN PRN Reason: Cough Dextrose/Water (D5w) 1,000 mls @ 0 mls/hr IV INF PRN PRN Reason: PRN HYPOGLYCEMIC PROTOCOL Insulin Human Lispro (Humalog) 0 units SC .AGGRESSIVE SLIDING PRN PRN Reason: Aggressive Correctional Scale Last Admin: 02/10/19 17:56 Dose: 3 unit Insulin Human Lispro (Humalog) 0 units SC .BEDTIME SLIDING SC PRN PRN Reason: Bedtime Correctional Scale Last Admin: 02/10/19 22:19 Dose: 2 unit Lisinopril (Zestril) 5 mg PO HS [facility] Last Admin: 02/10/19 22:15 Dose: 5 mg Metformin HCl (Glucophage) 1,000 mg PO BID [facility] Last Admin: 02/11/19 08:52 Dose: 1,000 mg Mineral Oil (Fleet Mineral Oil) 133 ml [place] DAILYPRN PRN PRN Reason: Constipation Nitroglycerin (Nitrostat) 0.4 mg SL Q5MIN PRN PRN Reason: Chest Pain Non-Formulary Medication (Dapagliflozin Propanediol [Farxiga]) 10 mg PO DAILY [facility] Ondansetron HCl (Zofran) 4 mg IVP Q6H PRN PRN Reason: Nausea/Vomiting Polyethylene Glycol (Miralax) 17 gm PO DAILY [facility] Last Admin: 02/11/19 08:53 Dose: Not Given Potassium Chloride (Klor-Con 10) 10 meq PO QAM-WM [facility] Last Admin: 02/11/19 08:52 Dose: 10 meq Vital Signs & Weight: Vital Signs Temp Pulse Resp BP Pulse Ox 02/11/19 07:07 98.3 F 85 18 120/72 93 L 02/11/19 04:00 98.4 F 83 20 119/78 95 Admit Weight 257 lb 15.053 oz Weight 247 lb 8 oz - Physical Exam General: alert & oriented x3 Neck: supple neck Cardiac: regular rate and rhythm, S1/S2 Lungs: clear to auscultation Neuro: cranial nerve 2-12 intact Abdomen: unremarkable Skin: clear Musculoskeletal: normal range of motion - Labs Result Diagrams: 02/08/19 05:15 02/09/19 04:32 Troponin/CKMB Troponin I 1.560 ng/mL (< 0.028) H* 02/07/19 11:23 - Telemetry Sinus rhythms and dysrhythmias: sinus rhythm - Assessment/Plan Assessment/Plan: 1. CAD with S/P CABG x 3 on 02/07/2019 with DEL ANGEL-LAD, radial-OM1, and RGSV-PDA - stable; on Coreg, ASA, Lipitor 2. HTN - stable 3. HLD - on statin 4. DM type 2 - managed by PCP 5. Obese - weight management education given to the pt and family MAR reviewed * From Cardiac standpoint, the pt is stable to d/c home * The pt will f/u with Dr Fajardo's office in 1 month. F/U with CT surgery in 2 weeks. Pt. seen and eval. by me. i agree with the A/P by the MA[employer]BALL UMPIRE. Pt. ambulating in halls. Denies SOB or chest pain. Chest ; decrease right base. RRR. CXR: clear lung travis but small bilat, effusions. Agree with discharge
[2019-02-11 11:12] LABS: Hemoglobin A1c 8.9 % (4.0-6.0)
[2019-02-11 15:50] VITALS: BP 105/72; TEMP 98.8
--- NOTE | 2019-02-12 00:36 | DIS ---
DATE OF ADMISSION: 02/07/2019 DATE OF DISCHARGE: 02/11/2019 PRIMARY CARE PHYSICIAN: The patient currently does not have a primary care physician. DISCHARGE DISPOSITION: Home. PRIMARY DISCHARGE DIAGNOSES: 1. Non ST-elevation myocardial infarction. 2. Diabetes mellitus type 2. 3. Dyslipidemia, specifically hypertriglyceridemia. 4. Hypertension. 5. Tobacco abuse. 6. Obesity. DISCHARGE MEDICATIONS: Include: 1. Metformin 1000 mg twice daily. 2. Lisinopril 5 mg at bedtime. 3. [place] 5/325 q.4 hours as needed. 4. Dapagliflozin 10 mg daily. 5. Coreg 3.125 mg twice daily. 6. Lipitor 40 mg at bedtime. 7. Aspirin 325 mg daily. 8. Sildenafil 100 mg daily. 9. Lantus insulin 10 units subcu daily. 10. Fenofibrate 145 mg daily. PROCEDURES DONE DURING THE ADMISSION: The patient had a cardiac catheterization showing 70% left main disease. LAD was 100% blocked after the diagonal and a distal circ had 90% stenosis in the RCA, 95% stenosis, ejection fraction of 40% to 45%. The patient also had a CT dissection protocol performed, which was negative for dissection. The patient had a 3-vessel bypass on 02/07/2019 with DEL ANGEL to the LAD, left radial artery to the first obtuse marginal, and reverse greater saphenous vein graft to the PDA. CODE STATUS: Full code. ALLERGIES: NO KNOWN DRUG ALLERGIES. HOSPITAL COURSE: Mr. Sellers is a pleasant 48-year-old gentleman, who presented to the emergency room with complaints of chest pain. He was evaluated in the ER and was diagnosed with acute coronary syndrome. He was admitted and started on appropriate cardiac medications. Cardiology was consulted. He was found to have non ST-segment elevated [place]. He went to emergent cardiac catheterization. He was found to have three-vessel coronary artery disease. It was recommended that he undergo bypass surgery. He had 3-vessel coronary artery bypass grafting. He had an uneventful postoperative course. He was counseled on diabetes control, as well as to abstain from smoking, the importance of medications and diet, and was discharged home. He will be discharged with the care of cardiac nursing staff as well to make outpatient visits and is expected to follow up with Dr. Cuenca, as well as Dr. Lucero as recommended. Job ID: [id number]
--- NOTE | 2019-02-12 02:02 | DIS ---
DATE OF ADMISSION: 02/07/2019 DATE OF DISCHARGE: 02/11/2019 PRINCIPAL DIAGNOSIS: Coronary artery disease with non-ST elevation myocardial infarction. PROCEDURES PERFORMED: Cardiac catheterization, 02/07/2019; emergent coronary artery bypass grafting x3 with left internal mammary artery to the LAD, left radial artery from the aorta to the first obtuse marginal, reverse greater saphenous vein graft from the aorta to the PDA. 02/07/2019. HISTORY OF PRESENT ILLNESS AND HOSPITAL COURSE: The patient is a 48-year-old diabetic man with a positive family history of premature coronary disease with a severe episode of chest pain prompting presentation to the emergency room. The patient's pain improved after second dose of sublingual nitroglycerin. However, it followed a waxing and waning pattern without completely resolving. He had mild elevation of his troponin and was taken to the cardiac geotechnical laboratory technician, where he was found to have a distal left main lesion with poor collateral filling of an occluded LAD and anterior hypokinesis. He was taken from the geotechnical laboratory technician holding area to the operating room where he underwent emergent revascularization. He was extubated shortly postoperatively and had an uneventful postoperative recovery. He was started on aspirin and statins immediately postoperatively, and low-dose lisinopril and Coreg were introduced to his medical regimen. He is now being discharged home on an aspirin a day, Coreg 3.125 mg b.i.d., lisinopril 5 mg at bedtime, and Lipitor 40 mg at bedtime. He is to resume his home diabetic regimen. He has been written a prescription for Vicodin as needed for pain. Job ID: [id number]
== END 2019-02-11 15:00 | disposition home or self-care (01) | DRG 234 ==
LOC: ERS 01:55 → 2SW 03:41 → OBSVTOIN 03:41 → 2NO 12:47 → CCU 14:13 → 2NO 02-09 09:21
PROVIDERS: ADMIT Hospitalist; ATTEND Hospitalist
PROC: 4A023N7 Measurement of Cardiac Sampling and Pressure, Left Heart, Percutaneous Approach (ICD-10-PCS; principal; 2019-02-07)
PROC: 02100Z9 Bypass Coronary Artery, One Artery from Left Internal Mammary, Open Approach (ICD-10-PCS; 2019-02-07)
PROC: 021009W Bypass Coronary Artery, One Artery from Aorta with Autologous Venous Tissue, Open Approach (ICD-10-PCS; 2019-02-07)
PROC: 02100AW Bypass Coronary Artery, One Artery from Aorta with Autologous Arterial Tissue, Open Approach (ICD-10-PCS; 2019-02-07)
PROC: 06BQ0ZZ Excision of Left Saphenous Vein, Open Approach (ICD-10-PCS; 2019-02-07)
PROC: 03BC0ZZ Excision of Left Radial Artery, Open Approach (ICD-10-PCS; 2019-02-07)
PROC: 5A1221Z Performance of Cardiac Output, Continuous (ICD-10-PCS; 2019-02-07)
PROC: B2111ZZ Fluoroscopy of Multiple Coronary Arteries using Low Osmolar Contrast (ICD-10-PCS; 2019-02-07)
PROC: B2151ZZ Fluoroscopy of Left Heart using Low Osmolar Contrast (ICD-10-PCS; 2019-02-07)
DX: I21.4 Non-ST elevation (NSTEMI) myocardial infarction (principal); E87.1 Hypo-osmolality and hyponatremia; I25.119 Atherosclerotic heart disease of native coronary artery with unspecified angina pectoris; I10 Essential (primary) hypertension; E11.9 Type 2 diabetes mellitus without complications; E78.1 Pure hyperglyceridemia; F17.210 Nicotine dependence, cigarettes, uncomplicated; E66.9 Obesity, unspecified; E78.2 Mixed hyperlipidemia; K21.9 Gastro-esophageal reflux disease without esophagitis; Z68.34 Body mass index [BMI] 34.0-34.9, adult; Z79.4 Long term (current) use of insulin; Z79.899 Other long term (current) drug therapy
CPT/HCPCS: 36415; 36416; 36430; 71045; 71046; 71275; 72191; 74175; 80048; 80053; 80061; 80306; 81003; 82805; 83036; 83690; 83735; 83880; 84132; 84443; 84484; 85014; 85018; 85025; 85610; 85730; 86850; 86870; 86880; 86900; 86901; 86922; 93005; 93010; 93458; 93798; 94002; 94150; 96374; 96375; 99152; 99153; C1769; J0360; J0690; J1250; J1642; J1644; J1815; J1885; J2001; J2150; J2250; J2270; J2405; J2440; J2704; J2720; J3010; J3370; J3475; J3480; J3490; J7050; P9045; Q9966; Q9967; S0017; S0028

== ENCOUNTER 2019-03-12 19:30 | Outpatient (CLI) | payer BC | END 2019-03-12 19:31 | disposition home or self-care (01) | LOC: SLEEPLAB 19:30 | PROVIDERS: ATTEND Internal Medicine Pulmonary Disease | DX: G47.33 Obstructive sleep apnea (adult) (pediatric) (principal); R53.83 Other fatigue; R06.83 Snoring; I25.10 Atherosclerotic heart disease of native coronary artery without angina pectoris; I11.0 Hypertensive heart disease with heart failure; I50.9 Heart failure, unspecified; G47.00 Insomnia, unspecified; G47.10 Hypersomnia, unspecified; R09.02 Hypoxemia; E11.9 Type 2 diabetes mellitus without complications; E66.9 Obesity, unspecified; Z68.32 Body mass index [BMI] 32.0-32.9, adult | CPT/HCPCS: 95810 ==

== ENCOUNTER 2019-04-13 19:30 | Outpatient (CLI) | payer BC | END 2019-04-13 19:31 | disposition home or self-care (01) | LOC: SLEEPLAB 19:30 | PROVIDERS: ATTEND Internal Medicine Pulmonary Disease | DX: G47.33 Obstructive sleep apnea (adult) (pediatric) (principal); R53.83 Other fatigue; E66.9 Obesity, unspecified; R06.83 Snoring; I51.89 Other ill-defined heart diseases; R09.02 Hypoxemia; Z68.32 Body mass index [BMI] 32.0-32.9, adult | CPT/HCPCS: 95811 ==